=== PATIENT | male | born 1950 | race African-American/Black ===

== ENCOUNTER 2021-02-01 11:51 | Emergency (ER) | payer MEDICARE, OTHER ==
[2021-02-01 12:43] LABS: EOSINOPHIL 9.2 % (0-7); HCT 50.1 % (42.0-52.0); HGB 15.6 g/dl (13.2-18.0); LYMPHOCYTE 21.5 % (15-48); MCH 30.9 pg (25.0-31.0); MCHC 31.1 g/dL (32.0-36.0); MCV 99.2 fL (78.0-100.0); MONOCYTE 13.3 % (0-12); MPV 10.3 fL (6.0-9.5); NEUTROPHIL 54.4 % (41-80); NRBC 0; PLT 166 K/uL (150-400); RBC 5.05 M/uL (4.70-6.00); RDW 13.4 % (11.5-14.0); WBC 5.1 K/uL (4.0-10.5)
[2021-02-01 12:53] LABS: ALBUMIN 3.5 g/dL (3.4-5.0); BILIRUBIN - TOTAL 0.4 mg/dL (0.2-1.0); BUN/CREAT RATIO (CALC) 19.2 RATIO; CREATININE 1.98 mg/dL (0.67-1.17); GLOBULIN (CALCULATION) 3.7 g/dL; POTASSIUM 4.9 mmol/L (3.5-5.1); TOTAL PROTEIN 7.2 g/dL (6.4-8.2)
[2021-02-01 13:20] LABS: LACTIC ACID 3.3 mmol/L (0.4-1.9)
[2021-02-01] MEDS ORDERED: AUGMENTIN 500-1 EACH PO (19:19)
== END 2021-02-01 20:00 | disposition home or self-care (01) ==
LOC: FER 11:51
PROVIDERS: Nurse Practitioner Family
DX: R41.82 Altered mental status, unspecified (principal); N39.0 Urinary tract infection, site not specified; I11.0 Hypertensive heart disease with heart failure; I50.9 Heart failure, unspecified; J44.9 Chronic obstructive pulmonary disease, unspecified; E11.9 Type 2 diabetes mellitus without complications; F03.90 Unspecified dementia, unspecified severity, without behavioral disturbance, psychotic disturbance, mood disturbance, and anxiety; Z86.73 Personal history of transient ischemic attack (TIA), and cerebral infarction without residual deficits
CPT/HCPCS: 36415; 70450; 71045; 71250; 80053; 83605; 84145; 84484; 85025; 87040; 93005; 96372; J2060; J2543; J3486; J7030

== ENCOUNTER 2021-02-05 12:35 | Inpatient (IN) | payer MEDICARE, OTHER ==
[~2021-02-05] VITALS: Ht 121.9 cm; Wt 88.0 kg
[~2021-02-05 12:35] MED LIST: AUGMENTIN 500-1 EACH PO
[2021-02-05 13:03] LABS: BASOPHIL 0.8 % (0-2); HGB 14.7 g/dl (13.2-18.0); MCH 30.7 pg (25.0-31.0); MCHC 30.6 g/dL (32.0-36.0); MCV 100.2 fL (78.0-100.0); MONOCYTE 12.8 % (0-12); MPV 9.8 fL (6.0-9.5); NEUTROPHIL 58.1 % (41-80); NRBC 0; PLT 156 K/uL (150-400); RBC 4.79 M/uL (4.70-6.00); RDW 13.4 % (11.5-14.0); WBC 6.1 K/uL (4.0-10.5)
[2021-02-05 13:06] LABS: BILIRUBIN NEGATIVE (NEGATIVE); BLOOD 3+ Ery/uL (NEGATIVE); CLARITY CLEAR (CLEAR); COLOR YELLOW (YELLOW); GLUCOSE (U) NORMAL (NORMAL); LEUKOCYTES NEGATIVE Leu/uL (NEGATIVE); NITRITE NEGATIVE (NEGATIVE); PROTEIN NEGATIVE (NEGATIVE); SPECIFIC GRAVITY 1.025 (1.001-1.030)
[2021-02-05 13:09] LABS: ECSTASY (MDMA) NEGATIVE (NEGATIVE); MARIJUANA (THC) NEGATIVE (NEGATIVE); METHADONE NEGATIVE (NEGATIVE); OPIATES NEGATIVE (NEGATIVE)
[2021-02-05 13:10] LABS: AMPHETAMINES NEGATIVE (NEGATIVE); BARBITURATES NEGATIVE (NEGATIVE); OXYCODONE NEGATIVE (NEGATIVE)
[2021-02-05 13:31] LABS: ALBUMIN 3.3 g/dL (3.4-5.0); BILIRUBIN - TOTAL 0.4 mg/dL (0.2-1.0); BUN/CREAT RATIO (CALC) 12.1 RATIO; CREATININE 2.14 mg/dL (0.67-1.17); POTASSIUM 4.5 mmol/L (3.5-5.1); TOTAL PROTEIN 7.3 g/dL (6.4-8.2)
[2021-02-05 13:34] LABS: PRO-BNP <5 pg/mL (<125)
[2021-02-05 14:31] LABS: CORONAVIRUS 2019 SARS-COV-2 NEGATIVE (NEGATIVE); INFLUENZA A NAA NEGATIVE (NEGATIVE)
[2021-02-05] MEDS ORDERED: ATIVAN0.5 MG PO (19:50)
[2021-02-05] MEDS ORDERED: ZYPREXA 5MG TABL5 MG PO (19:50)
[2021-02-05] MEDS ORDERED: ASPIRIN EC81 MG PO (19:50)
[2021-02-05] MEDS ORDERED: EFFEXOR XR150 MG PO (19:51)
[2021-02-05] MEDS ORDERED: TRAZODONE HCL50 MG PO (19:51)
[2021-02-05] MEDS ORDERED: LOPRESSOR25 MG PO (19:52)
[2021-02-05] MEDS ORDERED: NEURONTIN100 MG PO (19:52)
[2021-02-05] MEDS ORDERED: COLACE100 MG PO (19:52)
[2021-02-05] MEDS ORDERED: DEPAKOTE250 MG PO (19:53)
[2021-02-05] MEDS ORDERED: ELIQUIS2.5 MG PO (19:53)
[2021-02-05] MEDS ORDERED: LIPITOR 10MG TA10 MG PO (19:53)
[2021-02-06 06:56] LABS: BASOPHIL 0.4 % (0-2); EOSINOPHIL 10.7 % (0-7); HCT 42.4 % (42.0-52.0); LYMPHOCYTE 19.8 % (15-48); MCH 30.7 pg (25.0-31.0); MCHC 30.7 g/dL (32.0-36.0); MONOCYTE 12.3 % (0-12); MPV 9.8 fL (6.0-9.5); NEUTROPHIL 56.6 % (41-80); NRBC 0; PLT 141 K/uL (150-400); RBC 4.24 M/uL (4.70-6.00); RDW 13.3 % (11.5-14.0)
[2021-02-06 07:09] LABS: BUN/CREAT RATIO (CALC) 12.8 RATIO; CREATININE 1.56 mg/dL (0.67-1.17); POTASSIUM 4.7 mmol/L (3.5-5.1)
--- NOTE | 2021-02-06 16:00 | NUR ---
02/05/21 Persaud is from [facility]. Patient will be accepted back per [facility].
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
[2021-02-07 06:39] LABS: BASOPHIL 0.7 % (0-2); EOSINOPHIL 10.7 % (0-7); HCT 42.5 % (42.0-52.0); LYMPHOCYTE 20.5 % (15-48); MCH 30.5 pg (25.0-31.0); MCHC 30.6 g/dL (32.0-36.0); MCV 99.8 fL (78.0-100.0); MONOCYTE 11.5 % (0-12); MPV 9.7 fL (6.0-9.5); NEUTROPHIL 56.4 % (41-80); NRBC 0; PLT 140 K/uL (150-400); RBC 4.26 M/uL (4.70-6.00); WBC 5.5 K/uL (4.0-10.5)
[2021-02-07 06:56] LABS: BUN/CREAT RATIO (CALC) 10.2 RATIO; CREATININE 1.28 mg/dL (0.67-1.17); MAGNESIUM 2.1 mg/dL (1.8-2.4); POTASSIUM 4.6 mmol/L (3.5-5.1)
[2021-02-07] MEDS ORDERED: ATIVAN0.5 MG PO (09:10)
[2021-02-07] MEDS ORDERED: NEURONTIN100 MG PO (09:10)
[2021-02-07] MEDS ORDERED: PRINIVIL10 MG PO (09:10)
--- NOTE | 2021-02-07 12:20 | NUR ---
patient triggered to nutrition for screen 2` dx of DM; pt admitted unresponsive d/t synocope episode. currently on appropriate diet for DM; intake @ breakfast 75%. no additional Nutrition F/U needed.
--- NOTE | 2021-02-07 18:15 | NUR ---
0800 PT ALERT AND ORIENTED TO SELF, NICE AND POLITE 1000 PT BEGINS YELLING AND TRYING TO GET UP OUT OF BED. AFTER GOING AND TRYING TO TALK TO PATIENT WAS UNCONSOLABLE, WAS SWINGING AND TRIED BITING STAFF. CALLED MD HENDERSON FOR ASSISTANCE 5MG IM ZELDA ORDERED AND GIVEN 1100 PT WAS SLIGHTLY MORE RELAXED AND STAYED IN BED
== END 2021-02-07 14:11 | DRG 683 ==
LOC: FER 12:35 → FMS 17:55
PROVIDERS: Hospitalist; Internal Medicine; ADMIT Allergy & Immunology Allergy
DX: N17.9 Acute kidney failure, unspecified (principal); E87.2 Acidosis; F01.51 Vascular dementia, unspecified severity, with behavioral disturbance; I50.22 Chronic systolic (congestive) heart failure; E87.0 Hyperosmolality and hypernatremia; E86.0 Dehydration; Z20.822 Contact with and (suspected) exposure to COVID-19; Z66 Do not resuscitate; I48.0 Paroxysmal atrial fibrillation; F31.9 Bipolar disorder, unspecified; K21.9 Gastro-esophageal reflux disease without esophagitis; I25.10 Atherosclerotic heart disease of native coronary artery without angina pectoris; I11.0 Hypertensive heart disease with heart failure; E78.00 Pure hypercholesterolemia, unspecified; G47.33 Obstructive sleep apnea (adult) (pediatric); E66.01 Morbid (severe) obesity due to excess calories; E11.51 Type 2 diabetes mellitus with diabetic peripheral angiopathy without gangrene; J44.9 Chronic obstructive pulmonary disease, unspecified; F41.1 Generalized anxiety disorder; G47.00 Insomnia, unspecified; E55.9 Vitamin D deficiency, unspecified; Z79.01 Long term (current) use of anticoagulants; Z79.82 Long term (current) use of aspirin; Z79.899 Other long term (current) drug therapy; Z89.512 Acquired absence of left leg below knee; Z89.511 Acquired absence of right leg below knee; Z86.16 Personal history of COVID-19
CPT/HCPCS: 36415; 36600; 70450; 71045; 71250; 80048; 80053; 80164; 80305; 81001; 82803; 82962; 83605; 83735; 83880; 84145; 84484; 85025; 87040; 87088; 93005; 96372; G0378; J0692; J2060; J2543; J3370; J3486; J7030; J7050; U0002

== ENCOUNTER 2021-05-01 15:20 | Inpatient (IN) | payer MEDICARE, OTHER ==
[~2021-05-01] VITALS: Ht 152.4 cm; Wt 76.6 kg
[~2021-05-01 15:20] MED LIST changes: +ASPIRIN EC81 MG PO; +ATIVAN0.5 MG PO; +COLACE100 MG PO; +DEPAKOTE250 MG PO; +EFFEXOR XR150 MG PO; +ELIQUIS2.5 MG PO; +LIPITOR 10MG TA10 MG PO; +LOPRESSOR25 MG PO; +NEURONTIN100 MG PO; +PRINIVIL10 MG PO; +TRAZODONE HCL50 MG PO; +ZYPREXA 5MG TABL5 MG PO
[2021-05-01 18:10] LABS: BASOPHIL 0.6 % (0-2); EOSINOPHIL 1.3 % (0-7); HCT 53.6 % (42.0-52.0); HGB 16.3 g/dl (13.2-18.0); LYMPHOCYTE 11.3 % (15-48); MCH 29.7 pg (25.0-31.0); MCHC 30.4 g/dL (32.0-36.0); MCV 97.6 fL (78.0-100.0); MONOCYTE 8.7 % (0-12); MPV 10.6 fL (6.0-9.5); NEUTROPHIL 77.7 % (41-80); NRBC 0; PLT 195 K/uL (150-400); RBC 5.49 M/uL (4.70-6.00); WBC 10.5 K/uL (4.0-10.5)
[2021-05-01 18:48] LABS: INFLUENZA A NAA NEGATIVE (NEGATIVE)
[2021-05-01 18:52] LABS: ALBUMIN 3.9 g/dL (3.4-5.0); BILIRUBIN - TOTAL 0.7 mg/dL (0.2-1.0); BUN/CREAT RATIO (CALC) 17.9 RATIO; CREATININE 4.42 mg/dL (0.67-1.17); GLOBULIN (CALCULATION) 4.7 g/dL; POTASSIUM 4.8 mmol/L (3.5-5.1); TOTAL PROTEIN 8.6 g/dL (6.4-8.2)
[2021-05-01 19:02] LABS: CORONAVIRUS 2019 SARS-COV-2 POSITIVE (NEGATIVE)
[2021-05-01 20:54] LABS: INR 1.38 (0.9-1.2); PROTHROMBIN TIME 16.3 SECONDS (11.8-13.4); PTT 31.8 SECONDS (24.4-34.7)
[2021-05-01 21:10] LABS: ACETAMINOPHEN (TYLENOL) < 2.0 ug/mL (10.0-30.0)
[2021-05-01 22:47] LABS: AMPHETAMINES NEGATIVE (NEGATIVE); BARBITURATES NEGATIVE (NEGATIVE); ECSTASY (MDMA) NEGATIVE (NEGATIVE); MARIJUANA (THC) NEGATIVE (NEGATIVE); METHADONE NEGATIVE (NEGATIVE); OPIATES NEGATIVE (NEGATIVE); OXYCODONE NEGATIVE (NEGATIVE)
[2021-05-01 22:48] LABS: BILIRUBIN 2+ mg/dL (NEGATIVE); BLOOD 2+ Ery/uL (NEGATIVE); CLARITY SLIGHTLY HAZY (CLEAR); COLOR YELLOW (YELLOW); GLUCOSE (U) NORMAL (NORMAL); LEUKOCYTES TRACE Leu/uL (NEGATIVE); NITRITE NEGATIVE (NEGATIVE); PROTEIN 1+ mg/dL (NEGATIVE); SPECIFIC GRAVITY >=1.030 (1.001-1.030); UROBILINOGEN 0.2 mg/dL (0.2-1.0); pH 5.5 (5.0-9.0)
[2021-05-01 22:55] LABS: CREATININE 4.1 mg/dL (0.67-1.17); POTASSIUM 4.7 mmol/L (3.5-5.1)
[2021-05-01 22:58] LABS: URINARY RBC 20-50
[2021-05-01 23:01] LABS: BACTERIA TRACE; SQUAMOUS EPITHELIAL CELLS RARE; YEAST PRESENT
[2021-05-02] MEDS ORDERED: DEPAKOTE250 MG PO (03:40)
[2021-05-02] MEDS ORDERED: ZYPREXA 5MG TABL5 MG PO (03:41)
[2021-05-02] MEDS ORDERED: VENTOLIN HFA IN18 GM INH (03:42)
[2021-05-02] MEDS ORDERED: 8 HOUR650 MG PO (03:43)
[2021-05-02] MEDS ORDERED: METFORMIN HCL500 MG PO (03:44)
[2021-05-02 07:55] LABS: C-REACTIVE PROTEIN 8.2 mg/dL (<=0.90)
--- NOTE | 2021-05-02 12:28 | NUR ---
05/02/21 Mr. Dunlap was admitted from [facility]. They will accept him back per [facility].
[2021-05-02 18:56] LABS: URINE CREATININE 201.79 mg/dL (29.00-226.00)
[2021-05-03 06:20] LABS: BUN/CREAT RATIO (CALC) 23.9 RATIO; CREATININE 2.93 mg/dL (0.67-1.17)
[2021-05-03 15:11] LABS: ORGANISM ID Not indicated. (.); SPECIMEN SOURCE Urine (.); STREPTOCOCCUS PNEUMONIAE AG Negative (Negative)
[2021-05-04 07:43] LABS: BASOPHIL 0.2 % (0-2); EOSINOPHIL 0.5 % (0-7); HCT 42.2 % (42.0-52.0); LYMPHOCYTE 20.2 % (15-48); MCH 29.7 pg (25.0-31.0); MCHC 30.8 g/dL (32.0-36.0); MCV 96.3 fL (78.0-100.0); MONOCYTE 10.6 % (0-12); MPV 10.3 fL (6.0-9.5); NEUTROPHIL 68.1 % (41-80); NRBC 0; PLT 189 K/uL (150-400); RBC 4.38 M/uL (4.70-6.00); WBC 5.7 K/uL (4.0-10.5)
[2021-05-04 08:09] LABS: BUN/CREAT RATIO (CALC) 24.5 RATIO; CREATININE 2.37 mg/dL (0.67-1.17); POTASSIUM 3.8 mmol/L (3.5-5.1)
[2021-05-04] MEDS ORDERED: DEXAMETHASONE 2M2 MG PO (09:48)
--- NOTE | 2021-05-04 15:02 | NUR ---
REPORT GIVEN TO [place] AT [facility]
== END 2021-05-04 15:52 | DRG 177 ==
LOC: FER 15:20 → FTCU 05-02 01:10 → FMS 05-03 11:59
PROVIDERS: Emergency Medicine; Internal Medicine; Nurse Practitioner; Nurse Practitioner Acute Care; ADMIT Internal Medicine
PROC: 0HQ0XZZ Repair Scalp Skin, External Approach (ICD-10-PCS; principal; 2021-05-02)
PROC: 3E0333Z Introduction of Anti-inflammatory into Peripheral Vein, Percutaneous Approach (ICD-10-PCS; 2021-05-02)
PROC: 8E0ZXY6 Isolation (ICD-10-PCS; 2021-05-02)
DX: U07.1 COVID-19 (principal); J12.82 Pneumonia due to coronavirus disease 2019; J96.01 Acute respiratory failure with hypoxia; G93.41 Metabolic encephalopathy; N17.9 Acute kidney failure, unspecified; E87.0 Hyperosmolality and hypernatremia; I50.42 Chronic combined systolic (congestive) and diastolic (congestive) heart failure; N30.00 Acute cystitis without hematuria; F01.51 Vascular dementia, unspecified severity, with behavioral disturbance; J44.0 Chronic obstructive pulmonary disease with (acute) lower respiratory infection; Z66 Do not resuscitate; F32.A Depression, unspecified; F41.1 Generalized anxiety disorder; E78.5 Hyperlipidemia, unspecified; E11.51 Type 2 diabetes mellitus with diabetic peripheral angiopathy without gangrene; G47.00 Insomnia, unspecified; E11.65 Type 2 diabetes mellitus with hyperglycemia; R13.10 Dysphagia, unspecified; T38.0X5A Adverse effect of glucocorticoids and synthetic analogues, initial encounter; E86.0 Dehydration; E83.52 Hypercalcemia; I11.0 Hypertensive heart disease with heart failure; Z86.73 Personal history of transient ischemic attack (TIA), and cerebral infarction without residual deficits; Z89.619 Acquired absence of unspecified leg above knee; S01.81XA Laceration without foreign body of other part of head, initial encounter; W06.XXXA Fall from bed, initial encounter; Y93.89 Activity, other specified; Y92.230 Patient room in hospital as the place of occurrence of the external cause
CPT/HCPCS: 36415; 70450; 71045; 71250; 72125; 73020; 73070; 80048; 80053; 80305; 81001; 82140; 82570; 82728; 82962; 83605; 83615; 83935; 84145; 84300; 85025; 85610; 85730; 86140; 87088; 93005; 94010; 94640; 94762; C9113; G0480; J0696; J1100; J1650; J7060; U0002

== ENCOUNTER 2021-05-10 | Inpatient (IN) | payer MEDICARE, OTHER ==
[~2021-05-10] VITALS: Ht 152.4 cm; Wt 61.8 kg
[~2021-05-10] MED LIST changes: +8 HOUR650 MG PO; +DEXAMETHASONE 2M2 MG PO; +METFORMIN HCL500 MG PO; +VENTOLIN HFA IN18 GM INH
[2021-05-10 00:51] LABS: BASOPHIL 0.2 % (0-2); HCT 43.5 % (42.0-52.0); HGB 13.3 g/dl (13.2-18.0); LYMPHOCYTE 10.4 % (15-48); MCHC 30.6 g/dL (32.0-36.0); MONOCYTE 5.7 % (0-12); MPV 9.7 fL (6.0-9.5); NRBC 0; PLT 173 K/uL (150-400); RBC 4.44 M/uL (4.70-6.00); RDW 14.6 % (11.5-14.0); WBC 9.7 K/uL (4.0-10.5)
[2021-05-10 01:17] LABS: BILIRUBIN - TOTAL 0.5 mg/dL (0.2-1.0); BUN/CREAT RATIO (CALC) 36.5 RATIO; CREATININE 1.48 mg/dL (0.67-1.17); GLOBULIN (CALCULATION) 4.1 g/dL; POTASSIUM 3.8 mmol/L (3.5-5.1); TOTAL PROTEIN 7.1 g/dL (6.4-8.2)
[2021-05-10 04:17] LABS: BILIRUBIN 1+ mg/dL (NEGATIVE); BLOOD 3+ Ery/uL (NEGATIVE); CLARITY CLEAR (CLEAR); COLOR YELLOW (YELLOW); GLUCOSE (U) NORMAL (NORMAL); LEUKOCYTES 2+ Leu/uL (NEGATIVE); NITRITE NEGATIVE (NEGATIVE); PROTEIN 2+ mg/dL (NEGATIVE); SPECIFIC GRAVITY >=1.030 (1.001-1.030); UROBILINOGEN 0.2 mg/dL (0.2-1.0); pH 5.5 (5.0-9.0)
[2021-05-10 04:23] LABS: BACTERIA 1+; URINARY WBC TNTC; YEAST PRESENT
[2021-05-10 04:28] LABS: AMORPHOUS URATES CRYSTALS MODERATE; URIC ACID CRYSTALS TRACE
[2021-05-10 04:33] LABS: RENAL EPITHELIAL CELLS RARE; SQUAMOUS EPITHELIAL CELLS RARE; URINARY RBC 20-50
[2021-05-10 11:18] LABS: CREATININE 1.67 mg/dL (0.67-1.17); POTASSIUM 3.9 mmol/L (3.5-5.1)
[2021-05-10] MEDS ORDERED: ATIVAN0.5 MG PO (12:17)
[2021-05-10] MEDS ORDERED: DESYREL50 MG PO (12:18)
[2021-05-10] MEDS ORDERED: EFFEXOR XR150 MG PO (12:19)
[2021-05-10 18:00] LABS: BUN/CREAT RATIO (CALC) 26.8 RATIO; CREATININE 1.83 mg/dL (0.67-1.17); POTASSIUM 3.6 mmol/L (3.5-5.1)
[2021-05-11 05:46] LABS: BUN/CREAT RATIO (CALC) 22.4 RATIO; CREATININE 1.96 mg/dL (0.67-1.17); POTASSIUM 3.7 mmol/L (3.5-5.1)
[2021-05-11 05:57] LABS: BASOPHIL 0.5 % (0-2); EOSINOPHIL 6.9 % (0-7); HCT 43.3 % (42.0-52.0); HGB 12.6 g/dl (13.2-18.0); LYMPHOCYTE 15.9 % (15-48); MCHC 29.1 g/dL (32.0-36.0); MONOCYTE 5.1 % (0-12); MPV 10.2 fL (6.0-9.5); NEUTROPHIL 70.9 % (41-80); NRBC 0; PLT 142 K/uL (150-400); RDW 14.7 % (11.5-14.0); WBC 7.4 K/uL (4.0-10.5)
[2021-05-11 06:03] LABS: MCV 103.1 fL (78.0-100.0)
--- NOTE | 2021-05-11 16:09 | NUR ---
05/11/21 [place] will accept back per [facility]. A new COVID test will be required.
--- NOTE | 2021-05-11 18:26 | NUR ---
PT TRANSFERREED TO MED SURG, REPORT GIVEN TO DONNA MONROE AT 1708. PT WAS TAKEN OVER IN BED TRANFERRED TO MS BED ON 2 L O2 NC. THOMPSON IN ROOM WHEN PT WAS SITUATED.
[2021-05-12 06:29] LABS: BASOPHIL 0.5 % (0-2); EOSINOPHIL 5.1 % (0-7); HCT 44.2 % (42.0-52.0); HGB 13.1 g/dl (13.2-18.0); LYMPHOCYTE 11.5 % (15-48); MCH 29.6 pg (25.0-31.0); MCHC 29.6 g/dL (32.0-36.0); MONOCYTE 3.9 % (0-12); MPV 10.4 fL (6.0-9.5); NEUTROPHIL 78.5 % (41-80); NRBC 0; PLT 146 K/uL (150-400); RBC 4.42 M/uL (4.70-6.00); RDW 14.6 % (11.5-14.0); WBC 9.1 K/uL (4.0-10.5)
--- NOTE | 2021-05-12 06:35 | NUR ---
BED WOULD NOT WEIGH
[2021-05-12 09:01] LABS: CREATININE 1.83 mg/dL (0.67-1.17); POTASSIUM 3.7 mmol/L (3.5-5.1)
--- NOTE | 2021-05-12 18:54 | NUR ---
TALKED TO DR. STEWART ABOUT NOT ABLE TO INSERT DOBHOP. SAID TO LEAVE OUT AT THIS TIME
[2021-05-13 09:37] LABS: BUN/CREAT RATIO (CALC) 18.9 RATIO; CREATININE 1.96 mg/dL (0.67-1.17); POTASSIUM 3.3 mmol/L (3.5-5.1)
[2021-05-14 05:52] LABS: BASOPHIL 0.5 % (0-2); EOSINOPHIL 4.6 % (0-7); HCT 41.2 % (42.0-52.0); HGB 12.5 g/dl (13.2-18.0); LYMPHOCYTE 12.9 % (15-48); MCH 29.5 pg (25.0-31.0); MCHC 30.3 g/dL (32.0-36.0); MCV 97.2 fL (78.0-100.0); MONOCYTE 5.7 % (0-12); MPV 10.4 fL (6.0-9.5); NEUTROPHIL 75.9 % (41-80); NRBC 0; PLT 132 K/uL (150-400); RBC 4.24 M/uL (4.70-6.00); RDW 14.6 % (11.5-14.0); WBC 7.5 K/uL (4.0-10.5)
[2021-05-14 06:19] LABS: BUN/CREAT RATIO (CALC) 21.8 RATIO; CREATININE 1.56 mg/dL (0.67-1.17); POTASSIUM 3.1 mmol/L (3.5-5.1)
[2021-05-14 15:06] LABS: BUN/CREAT RATIO (CALC) 18.6 RATIO; CREATININE 1.83 mg/dL (0.67-1.17); POTASSIUM 4.1 mmol/L (3.5-5.1)
[2021-05-15 06:40] LABS: BASOPHIL 0.5 % (0-2); EOSINOPHIL 1.4 % (0-7); HCT 36.2 % (42.0-52.0); LYMPHOCYTE 11.1 % (15-48); MCH 29.9 pg (25.0-31.0); MCHC 30.4 g/dL (32.0-36.0); MCV 98.4 fL (78.0-100.0); MONOCYTE 6.1 % (0-12); NEUTROPHIL 79.7 % (41-80); NRBC 0; PLT 140 K/uL (150-400); RBC 3.68 M/uL (4.70-6.00); RDW 14.8 % (11.5-14.0); WBC 13.7 K/uL (4.0-10.5)
[2021-05-15 07:23] LABS: BUN/CREAT RATIO (CALC) 15.9 RATIO; CREATININE 2.58 mg/dL (0.67-1.17); MAGNESIUM 1.8 mg/dL (1.8-2.4); POTASSIUM 3.5 mmol/L (3.5-5.1)
--- NOTE | 2021-05-16 02:22 | NUR ---
X 3 JANIE REMOVED FROM LEFT FRONTAL SCALP WITH STAPLE REMOVER. AREA CLEANED AND BACITRACIN OINTMENT APPLIED TO AREA.
--- NOTE | 2021-05-16 04:28 | NUR ---
SPOKE WITH Sky TOMAS NP ABOUT LOW URINE OUTPUT OF 150CC IN [place]. Sky TOMAS LEGAL RECEPTIONIST STATES TO GIVE 200CC FREE WATER WITH NEXT SCHEDULED (150CC FREE WATER FLUSH)
[2021-05-16 06:25] LABS: BASOPHIL 0.2 % (0-2); EOSINOPHIL 2.6 % (0-7); HCT 28.4 % (42.0-52.0); HGB 8.7 g/dl (13.2-18.0); LYMPHOCYTE 14.3 % (15-48); MCHC 30.6 g/dL (32.0-36.0); MCV 97.9 fL (78.0-100.0); MONOCYTE 4.1 % (0-12); MPV 11.1 fL (6.0-9.5); NEUTROPHIL 78.1 % (41-80); NRBC 0; PLT 109 K/uL (150-400); RDW 14.6 % (11.5-14.0)
[2021-05-16 06:27] LABS: WBC 8.9 K/uL (4.0-10.5)
[2021-05-16 06:48] LABS: BUN/CREAT RATIO (CALC) 16.2 RATIO; CREATININE 2.34 mg/dL (0.67-1.17)
--- NOTE | 2021-05-16 15:27 | NUR ---
0720 NOTIFIED BY BARTOLOME RT PT O2 SAT 75% PT SOUNDS "WET". PLACED ON NRB DR. HENDERSON NOTIFIED AND CALLED TO BS. STAT CHEST XRAY AND LASIX 40MG IV ORDERED FOR NOW. PT O2 SAT 94% ON NRB. 1146 AFTER LEAVING PT ROOM TO GET INSULIN FOR BG 111, CALLED BACKED TO ROOM BY BARTOLOME RT PT VOMITED. UPON ENTERING ROOM PT COVERED IN EMESIS/COLOR OF TUBE FEEDS. TUBE FEEDS VIA PEG TUBE STOPPED, PT SUCTIONED AND CLEANED. DR. HENDERSON NOTIFIED. ZOFRAN GIVEN 1210 HR 150'S SUSTAINED ST. DR. HENDERSON CALLED AND EKG ORDERED. 1220 DR. HENDERSON AT PT BEDSIDE,RR 40, REVIEWED EKG. INSTRUCTED TO GIVE MORPHINE 2MG IV 1228 PATY LEE PT NOTIFIED OF PT CHANGE OF CONDITION FOR WORSE INCREASED O2 REQUIREMENT AND INCREASED HR.
--- NOTE | 2021-05-16 17:28 | NUR ---
1550-BP 66/41, HR 150'S. DR. HENDERSON NOTIFIED AND CAME TO BEDSIDE. NS 500ML BOLUSE ORDERED, DR. HENDERSON ATTEMPT TO CALL PT PATY, NO ANSWER. 1430 BP 70/34, HR 138. O2 SAT 83% 100% HIGHFLOW WITH AN NRB. PT LETHARGIC. BEATRIZ YANEZ NOTIFIED NS 1000ML BOLUS STARTED. CALLED PATY AND LEFT VOICEMAIL TO CALL BACK DARIN 1710-SISTER GAVIN CALLED. NOTIFIED OF WORSENING CONDITION. GAVIN STATED SHE "ILL CALL AND GIVE HER MESSAGE TO CALL'" [address] HENDERSON BP 96/43 HR 128, SAT 82% 100% HIGHFLOW WITH NRB NS AT 125ML/HR ORDERED
--- NOTE | 2021-05-16 18:42 | NUR ---
1829 70/43, HR 131,O2 SAT 82% RR34 DR. HENDERSON ANXIETY 1829 70/43 HR 131 82% HIGHFLOW AND NONREBREATHER, RR 34. DR. HENDERSON NOTIFIED NO NEW ORDERS AT THIS TIME
== END 2021-05-17 04:00 | disposition expired | DRG 682 ==
LOC: FER → FTCU 08:46 → FMS 05-11 16:05 → FTCU 05-14 17:35
PROVIDERS: Anesthesiology; Emergency Medicine; Internal Medicine; Surgery; ADMIT Allergy & Immunology Allergy
PROC: 0DH63UZ Insertion of Feeding Device into Stomach, Percutaneous Approach (ICD-10-PCS; principal; 2021-05-14 12:19)
PROC: 3E0G76Z Introduction of Nutritional Substance into Upper GI, Via Natural or Artificial Opening (ICD-10-PCS; 2021-05-15)
PROC: 5A0935A Assistance with Respiratory Ventilation, Less than 24 Consecutive Hours, High Flow/Velocity Cannula (ICD-10-PCS; 2021-05-16)
DX: N17.0 Acute kidney failure with tubular necrosis (principal); A41.9 Sepsis, unspecified organism; I21.A1 Myocardial infarction type 2; G93.41 Metabolic encephalopathy; J69.0 Pneumonitis due to inhalation of food and vomit; J96.01 Acute respiratory failure with hypoxia; J18.9 Pneumonia, unspecified organism; R65.21 Severe sepsis with septic shock; B37.49 Other urogenital candidiasis; E87.0 Hyperosmolality and hypernatremia; J44.0 Chronic obstructive pulmonary disease with (acute) lower respiratory infection; I13.0 Hypertensive heart and chronic kidney disease with heart failure and stage 1 through stage 4 chronic kidney disease, or unspecified chronic kidney disease; I50.9 Heart failure, unspecified; E86.0 Dehydration; M10.9 Gout, unspecified; E11.22 Type 2 diabetes mellitus with diabetic chronic kidney disease; N18.9 Chronic kidney disease, unspecified; Z20.822 Contact with and (suspected) exposure to COVID-19; Z66 Do not resuscitate; F03.90 Unspecified dementia, unspecified severity, without behavioral disturbance, psychotic disturbance, mood disturbance, and anxiety; R13.10 Dysphagia, unspecified; E55.9 Vitamin D deficiency, unspecified; E63.9 Nutritional deficiency, unspecified; F32.A Depression, unspecified; F41.9 Anxiety disorder, unspecified; E78.5 Hyperlipidemia, unspecified; G47.00 Insomnia, unspecified; Z89.512 Acquired absence of left leg below knee; Z86.73 Personal history of transient ischemic attack (TIA), and cerebral infarction without residual deficits; Z89.511 Acquired absence of right leg below knee; Z86.16 Personal history of COVID-19
CPT/HCPCS: 36415; 36600; 70450; 71045; 80048; 80053; 81001; 82803; 82962; 83605; 83735; 83880; 84484; 85025; 87088; 93005; 94640; G0378; J0696; J1170; J1630; J1644; J1650; J1940; J2270; J2370; J2405; J2543; J3010; J3480; J7030; J7040; J7060; J7070; J7120; U0002